=== PATIENT | female | born 1960 | race Hispanic/Latino ===

== ENCOUNTER 2021-06-10 08:38 | Emergency (ER) | payer BC ==
[2021-06-10 10:23] LABS: Protime INR 1.66
[2021-06-10 10:24] LABS: Absolute Lymphocytes (CBC) 0.5 K/uL (0.7-4.9); Lymphocytes % 4.5 % (15.3-44.8); MPV 7.5 fL (7.6-11.3); RBC Red Blood Cell Count 3.63 M/uL (3.86-4.86)
[2021-06-10 10:38] LABS: Urine Blood Negative (Negative); Urine Glucose Negative (Negative); Urine Protein 1+ (Negative); Urine Specific Gravity 1.025 (1.005-1.030); Urine pH 5.5 (5.0-7.0)
[2021-06-10 10:39] LABS: ALT/SGPT 28 U/L (12-78); AST/SGOT 44 U/L (15-37); Albumin 1.8 g/dL (3.4-5.0); Alkaline Phosphatase 128 U/L (45-117); BUN Blood Urea Nitrogen 20 mg/dL (7-18); Bicarbonate 24 mmol/L (21-32); Bilirubin Direct 2.6 mg/dL (0-0.2); Bilirubin Total 4.3 mg/dL (0.2-1.0); Glucose Level 93 mg/dL (74-106); Potassium 3.3 mmol/L (3.5-5.1); Protein, Total 8.3 g/dL (6.4-8.2); Sodium Level 132 mmol/L (136-145); Troponin (Emerg Dept Use Only) < 0.02 ng/mL (0.0-0.045)
[2021-06-10 10:40] LABS: Magnesium 2.2 mg/dL (1.8-2.4); NT PRO-BNP 290 pg/mL (<125)
[2021-06-10 11:28] LABS: Urine Bacteria 20-50 /HPF (<20); Urine Mucus 2+ /HPF (NONE SEEN); Urine RBC <5 /HPF (NONE SEEN)
--- NOTE | 2021-06-10 11:34 | RAD REPORT ---
EXAM DESCRIPTION: RAD - Chest Single View - 06/10/2021 10:20 am CLINICAL HISTORY: CHEST PAIN COMPARISON: None TECHNIQUE: AP portable chest image was obtained 06/10/2021 10:20 am . FINDINGS: Lung volumes are low. No peripheral mass consolidation. No significant degree of failure o r volume overload identifiable. Heart and vasculature are normal. No measurable pleural effusion and no pneumothorax. No acute bony abnormality seen. No acute aortic findings suspected. IMPRESSION: Limited portable study without acute cardiopulmonary finding.
--- NOTE | 2021-06-10 14:27 | EDPHYS ---
Physician Documentation [facility] Name: Riddhi Kohler Age: 60 yrs Sex: Female : 1960 Arrival Date: 06/10/2021 Time: 08:39 Bed 18 Private MD: Fatuma Nieto ED Physician Leena Newsome HPI: 06/10 10:44 This 60 yrs old Female presents to ER via Wheelchair with complaints of Chest sp3 Pain, Back Pain, Nausea. 10:44 60-year-old female with a history of liver cirrhosis (familial hereditary), esophageal sp3 varices, prior gallstones who presents with chief complaint chest pain, nausea, vomiting for 2 days. Patient states that her GI doctor does not want to drain her cirrhotic fluid secondary to risk of bleeding and infection. She does state that her fluid load is higher than it normally is. No coffee-ground emesis or green biliary emesis during any of her vomiting episodes. She denies shortness of breath, cough, fever, known COVID-19 contacts, headache, back pain, lower abdominal pain, rash, neuro symptoms, any other ROS at this time. Pain is described as diffuse and sharp and episodic in nature. Currently she is not in any pain.. Historical: - Allergies: 08:53 Codeine; tw2 08:53 Adhesives; tw2 - Home Meds: 08:53 spironolactone 25 mg Oral tab 1 tab 2 times per day [Active]; amoxicillin-pot tw2 clavulanate 875-125 mg Oral tab 1 tab every 12 hours [Active]; furosemide 40 mg Oral tab 1 tab once daily [Active]; - PMHx: 08:53 Cirrhosis of liver; Esophageal varices; Gallstone; tw2 - Immunization history:: Client reports receiving the 2nd dose of the Covid vaccine, Flu vaccine is up to date. - Social history:: Smoking status: . ROS: 10:46 Constitutional: Negative for fever, chills, and weight loss, Eyes: Negative for injury, sp3 pain, redness, and discharge, ENT: Negative for injury, pain, and discharge, Neck: Negative for injury, pain, and swelling, Cardiovascular: Negative for chest pain, palpitations, and edema, Respiratory: Negative for shortness of breath, cough, wheezing, and pleuritic chest pain, Back: Negative for injury and pain, MS/Extremity: Negative for injury and deformity, Skin: Negative for injury, rash, and discoloration, Neuro: Negative for headache, weakness, numbness, tingling, and seizure, Endocrine: Negative for neck swelling, polydipsia, polyuria, polyphagia, and marked weight changes, Hematologic/Lymphatic: Negative for swollen nodes, abnormal bleeding, and unusual bruising. 10:46 Abdomen/GI: Positive for Abdomen is distended with abdominal fluid noted including fluid wave.. 10:46 All other systems are negative. Exam: 10:47 Constitutional: This is a well developed, well nourished patient who is awake, alert, sp3 and in no acute distress. Head/Face: Normocephalic, atraumatic. ENT: Nares patent. No nasal discharge, no septal abnormalities noted. External auditory canals are clear. Oropharynx with no redness, swelling, or masses, exudates, or evidence of obstruction, uvula midline. Mucous membranes moist. Neck: Trachea midline, no thyromegaly or masses palpated, and no cervical lymphadenopathy. Supple, full range of motion without nuchal rigidity, or vertebral point tenderness. No Meningismus. Chest/axilla: Normal chest wall appearance and motion. Nontender with no deformity. No lesions are appreciated. Cardiovascular: Regular rate and rhythm with a normal S1 and S2. No gallops, murmurs, or rubs. Normal PMI, no JVD. No pulse deficits. Respiratory: Lungs have equal breath sounds bilaterally, clear to auscultation and percussion. No rales, rhonchi or wheezes noted. No increased work of breathing, no retractions or nasal flaring. Back: No spinal tenderness. No costovertebral tenderness. Full range of motion. Skin: Warm, dry with normal turgor. Normal color with no rashes, no lesions, and no evidence of cellulitis. MS/ Extremity: Pulses equal, no cyanosis. Neurovascular intact. Full, normal range of motion. Neuro: Awake and alert, GCS 15, oriented to person, place, time, and situation. Cranial nerves II-XII grossly intact. Motor strength 5/5 in all extremities. Sensory grossly intact. Cerebellar exam normal. Normal gait. Psych: Awake, alert, with orientation to person, place and time. Behavior, mood, and affect are within normal limits. 10:47 Eyes: Sclera: Normal ocular exam other than icteric sclera.. 10:47 Abdomen/GI: Distended abdomen with fluid wave present. Mild epigastric tenderness noted. Impossible to know size of organs given distention. No spider angiomas noted.. Vital Signs: 08:49 BP 132 / 79; Pulse 112; Resp 19; Temp 98.1(TE); Pulse Ox 99% on R/A; Weight 113.4 kg tw2 (R); Height 5 ft. 4 in. (162.56 cm); 10:33 BP 122 / 70; Pulse 117; Resp 24; Pulse Ox 98% ; bp 11:45 BP 116 / 39; Pulse 100; Resp 17; Pulse Ox 97% ; bp 14:00 BP 121 / 67; Pulse 106; Resp 21; Pulse Ox 98% ; bp 15:00 BP 117 / 57; Pulse 101; Resp 24; Pulse Ox 97% ; bp 08:49 Body Mass Index 42.91 (113.40 kg, 162.56 cm) tw2 MDM: 10:11 Patient medically screened. sp3 10:48 Data reviewed: vital signs, nurses notes. ED course: 60-year-old female with diffuse sp3 and periodic chest pain now resolved with a history of liver disease idiopathic. Will obtain laboratory values, chest x-ray, EKG and evaluate patient. Patient is pain-free at the moment. Consider repeat troponin in 4 hours and discharge with follow-up to PCP. At this time I am not highly suspicious for infectious process, pulmonary embolism, thoracic aortic aneurysm or dissection, bleeding esophageal varices, pancreatitis, or gallbladder pathology (however laboratory work will evaluate all of these items).. 14:25 ED course: Laboratory values reviewed. 2 negative troponin tests are noted. Bili is sp3 elevated but not significantly so and likely at baseline. EKG and chest x-ray showed no significant abnormality. Will discharge patient home at this time with PCP follow-up.. 06/10 09:54 Order name: Basic Metabolic Panel; Complete Time: 13:36 sp3 06/10 09:54 Order name: CBC with Diff; Complete Time: 13:36 sp3 06/10 09:54 Order name: LFT's; Complete Time: 13:36 sp3 06/10 09:54 Order name: Magnesium; Complete Time: 13:36 sp3 06/10 09:54 Order name: NT PRO-BNP; Complete Time: 13:36 sp3 06/10 09:54 Order name: PT-INR; Complete Time: 13:36 sp3 06/10 09:54 Order name: Troponin (emerg Dept Use Only); Complete Time: 13:36 sp3 06/10 09:54 Order name: XRAY Chest (1 view); Complete Time: 13:36 sp3 06/10 09:54 Order name: EKG; Complete Time: 09:55 sp3 06/10 09:56 Order name: AMMONIA; Complete Time: 13:36 bp 06/10 10:32 Order name: Urine Microscopic Only; Complete Time: 13:36 bp 06/10 10:38 Order name: Urine Dipstick-Ancillary; Complete Time: 13:36 EDMS 06/10 10:50 Order name: Troponin (emerg Dept Use Only): Draw 4 hours after first troponinp; sp3 Complete Time: 14:25 06/10 11:30 Order name: Urine Culture EDMS 06/10 09:54 Order name: Cardiac monitoring; Complete Time: 09:56 sp3 06/10 09:54 Order name: EKG - Nurse/Tech; Complete Time: 09:56 sp3 06/10 09:54 Order name: IV Saline Lock; Complete Time: 10:26 sp3 06/10 09:54 Order name: Labs collected and sent; Complete Time: 10:26 sp3 06/10 09:54 Order name: O2 Per Protocol; Complete Time: 09:57 sp3 06/10 09:54 Order name: O2 Sat Monitoring; Complete Time: 09:56 sp3 06/10 10:32 Order name: Urine Dipstick-Ancillary (obtain specimen); Complete Time: 10:46 bp Administered Medications: No medications were administered Disposition Summary: 06/10/21 14:27 Discharge Ordered Location: Home sp3 Condition: Stable sp3 Diagnosis - Nausea sp3 Followup: sp3 - With: Private Physician - When: As needed - Reason: Continuance of care Discharge Instructions: - Discharge Summary Sheet sp3 - Nausea, Adult sp3 Forms: - Medication Reconciliation Form sp3 - Thank You Letter sp3 - Antibiotic Education sp3 - Prescription Opioid Use sp3 Prescriptions: - Zofran 4 mg Oral Tablet - take 1 tablet by ORAL route every 12 hours As needed; 20 tablet; Refills: 0, sp3 Product Selection Permitted Signatures: Dispatcher [employer] Desiree Tapia RN RN tw2 Giovany Gaytan RN RN bp Leena Newsome MD MD sp3
--- NOTE | 2021-06-10 14:27 | ER ---
Nurse's Notes [facility] Name: Riddhi Kohler Age: 60 yrs Sex: Female : 1960 Arrival Date: 06/10/2021 Time: 08:39 Bed 18 Private MD: Fatuma Nieto Diagnosis: Nausea Presentation: 06/10 08:49 Chief complaint: Patient states: last Sunday night i started having pain in my chest. tw2 it started from the bottom left and radiated to my back. i felt nauseated but i didn't throw up. painful when i took a deep breathe. then another sharp pain in my upper chest. i have cirrhosis as well. i havent been taking my lactulose as i am supposed to and i have been eating wrong things. i also have a urinary tract infection i am taking antibiotics for now. Coronavirus screen: nausea. Ebola Screen: Patient denies travel to an Ebola-affected area in the 21 days before illness onset. Initial Sepsis Screen: Does the patient meet any 2 criteria? HR > 90 bpm. No. Patient's initial sepsis screen is negative. Does the patient have a suspected source of infection? No. Patient's initial sepsis screen is negative. Risk Assessment: Do you want to hurt yourself or someone else? Patient reports no desire to harm self or others. Onset of symptoms was June 10, 2021. 08:49 Method Of Arrival: Wheelchair tw2 08:49 Acuity: IVORY 3 tw2 Triage Assessment: 08:52 General: Appears in no apparent distress. uncomfortable, obese, well groomed, Behavior tw2 is cooperative, appropriate for age, agitated. General: pt denies pain at this time. states "it comes and goes but right now i am good". Pain: Denies pain. Cardiovascular: Reports chest pain. Historical: - Allergies: 08:53 Codeine; tw2 08:53 Adhesives; tw2 - Home Meds: 08:53 spironolactone 25 mg Oral tab 1 tab 2 times per day [Active]; amoxicillin-pot tw2 clavulanate 875-125 mg Oral tab 1 tab every 12 hours [Active]; furosemide 40 mg Oral tab 1 tab once daily [Active]; - PMHx: 08:53 Cirrhosis of liver; Esophageal varices; Gallstone; tw2 - Immunization history:: Client reports receiving the 2nd dose of the Covid vaccine, Flu vaccine is up to date. - Social history:: Smoking status: . Screenin:57 Abuse screen: Denies threats or abuse. Nutritional screening: No deficits noted. tw2 Tuberculosis screening: No symptoms or risk factors identified. Fall Risk None identified. Assessment: 10:00 General: SEE TRIAGE NOTE. bp 11:00 Reassessment: No changes from previously documented assessment. Patient and/or family bp updated on plan of care and expected duration. Pain level reassessed. 13:00 Reassessment: No changes from previously documented assessment. Patient and/or family bp updated on plan of care and expected duration. Pain level reassessed. 14:00 Reassessment: 2ND TROP DRAWN AND SENT. bp 15:07 Reassessment: PT DC HOME AMBULATORY, DX WITH NAUSEA. bp Vital Signs: 08:49 BP 132 / 79; Pulse 112; Resp 19; Temp 98.1(TE); Pulse Ox 99% on R/A; Weight 113.4 kg tw2 (R); Height 5 ft. 4 in. (162.56 cm); 10:33 BP 122 / 70; Pulse 117; Resp 24; Pulse Ox 98% ; bp 11:45 BP 116 / 39; Pulse 100; Resp 17; Pulse Ox 97% ; bp 14:00 BP 121 / 67; Pulse 106; Resp 21; Pulse Ox 98% ; bp 15:00 BP 117 / 57; Pulse 101; Resp 24; Pulse Ox 97% ; bp 08:49 Body Mass Index 42.91 (113.40 kg, 162.56 cm) tw2 ED Course: 08:39 Patient arrived in ED. as 08:40 Fatuma Nieto MD is Private Physician. as 08:51 Triage completed. tw2 08:51 Arm band placed on. EKG completed in triage. Results shown to MD. tw2 08:57 Patient maintains SpO2 saturation greater than 95% on room air. tw2 08:58 EKG done, by ED staff. mb4 09:00 Patient has correct armband on for positive identification. Bed in low position. Call bp light in reach. Side rails up X2. 09:00 deck supervisor on. Pulse ox on. NIBP on. bp 09:51 Giovany Gaytan, MARGIE is Primary Nurse. bp 09:53 Leena Newsome MD is Attending Physician. sp3 10:05 Inserted saline lock: 20 gauge in right forearm, using aseptic technique. Blood bp collected. 10:20 XRAY Chest (1 view) In Process Unspecified. EDMS 15:00 No provider procedures requiring assistance completed. IV discontinued, intact, bp bleeding controlled, No redness/swelling at site. Pressure dressing applied. Administered Medications: No medications were administered Outcome: 14:27 Discharge ordered by . sp3 15:00 Discharged to home ambulatory, with family. bp 15:00 Condition: stable 15:00 Discharge instructions given to patient, Instructed on discharge instructions, follow up and referral plans. medication usage, Demonstrated understanding of instructions, follow-up care, medications, Prescriptions given X 1. 15:09 Patient left the ED. bp Signatures: Dispatcher [employer] EDMS Anusha Garcia Tara RN RN tw2 Giovany Gaytan RN RN bp Magdalene Nascimento mb4 Leena Newsome MD MD sp3 Corrections: (The following items were deleted from the chart) 08:57 08:49 Chief complaint: Patient states: last Sunday night i started having pain in my tw2 chest. it started from the bottom left and radiated to my back. i felt nauseated but i didn't throw up. painful when i took a deep breathe. then another sharp pain in my upper chest. i have cirrhosis as well. i havent been taking my lactulose as i am supposed to and i have been eating wrong things. tw2
[2021-06-10 15:14] VITALS: TEMP 98.1
[2021-06-10 15:20] VITALS: BP 117/57; O2SAT 97
--- NOTE | 2021-06-11 13:50 | EKG ---
Test Date: 2021-06-10 Test Time: 08:50:48 Unified Communications Architect: MILADIS MEASUREMENT RESULTS: Intervals: Rate: 109 OK: 126 QRSD: 70 QT: 350 QTc: 471 [place]: P: 53 OK: 126 QRS: -14 T: -3 INTERPRETIVE STATEMENTS: Sinus tachycardia Cannot rule out Anterior infarct, age undetermined Abnormal ECG No previous ECG available for comparison Electronically Signed On 06-11-21 13:47:42 DIRECTOR BUSINESS by Herb Dickinson
== END 2021-06-10 15:09 | disposition home or self-care (01) ==
LOC: ER 08:38
DX: R11.0 Nausea (principal); K74.60 Unspecified cirrhosis of liver; Z88.6 Allergy status to analgesic agent
CPT/HCPCS: 36415; 71045; 80048; 80076; 81003; 81015; 82140; 83735; 83880; 84484; 85025; 85610; 87086; 87088; 93005; 99285